=== PATIENT | female | born 1960 | race Caucasian/White ===

== ENCOUNTER 2023-12-16 09:23 | Emergency (ER) | payer OTHER, SELFPAY ==
[2023-12-16 09:25] VITALS: BP 134/89
[2023-12-16 09:36] VITALS: BMI 34.8
[2023-12-16] MEDS: TYLENOL 1000 MG PO (10:14)
[2023-12-16] MEDS: MOTRIN 600 MG PO (10:14)
--- NOTE | 2023-12-16 10:31 | ED.GENMED ---
History of Present Illness
General
Chief Complaint: Musculo-Skeletal Complaint
Time Seen by Provider: 12/16/23 09:34
Travel History
Have you had any contact with someone who has COVID-19?: No
Do you have any symptoms of coronavirus? Fever > 100 degrees, chills, cough, shortness of breath, sore throat, loss of taste or smell, muscle aches, or headache?: No
History of Present Illness
History of Present Illness:
52-year-old female presents emergency department for evaluation of right ankle pain and left knee pain after a fall. She was walking 2 dogs when she was pulled awkwardly to the side, states she inverted the right ankle and then fell to the ground.
She was able to bear minimal weight on the right ankle but no weight on the left lower extremity. Denies any back pain or pelvic pain.
Past History
Past History
ED Past Medical History: None
Social History
Personal:
Living: with family
Review of Systems
Review of Systems
Allergies reviewed?: Yes
All Other Systems: ROS reviewed and negative except as documented in HPI and ROS
Phy Exam
Physical Exam
Physical Exam:
GEN: Well appearing, NAD, WDWN
HEENT: Oral mucosa moist, no scleral icterus
Cardiac: Regular rate
Lung: No respiratory distress, no tachypnea
MSK: Mild swelling to the right ankle with focal tenderness to the distal fibula, no proximal fibular tenderness or foot tenderness on the right. Left knee has a mild superficial abrasion and tenderness to the proximal tibia, no obvious knee
effusion, range of motion is normal.
Skin: Good color, no pallor or jaundice, no rashes
Neuro: AO x3, moves all extremities freely
Psych: Calm, cooperative
Course
Orders/Labs/Results
Orders:
Orders
12/16/23 09:30
CR Ankle - Right Min 3 Views * Urgent
Comment:
Reason For Exam: pain
Knee, Left 4 or More Views [CR Knee - Left 4 Or More View*] Urgent
Comment:
Reason For Exam: pain
12/16/23 10:10
Acetaminophen [Tylenol] 1,000 mg PO NOW STA
Ibuprofen [Motrin] 600 mg PO NOW STA
12/16/23 10:33
CT Lower Ext W/o Iv Cont Lt Urgent
Comment:
Reason For Exam: suspected L tibial plateau fx
12/16/23 12:35
Consult Orthopedic [ORTHOPEDIC CONSULT] Urgent
Consulting Provider: Enrrique Batres
Was physician already notified: Yes
Vital Signs
Initial and Last Documented VS:
Initial Vital Signs
Temp Pulse Resp BP Pulse Ox
98.1 F 76 18 134/89 99
12/16/23 09:25 12/16/23 09:25 12/16/23 09:25 12/16/23 09:25 12/16/23 09:25
Last Documented Vital Signs
Temp Pulse Resp BP Pulse Ox
98.1 F 74 16 132/84 97
12/16/23 09:25 12/16/23 11:35 12/16/23 11:35 12/16/23 11:35 12/16/23 11:35
MDM/Problems Addressed
MDM/Problems Addressed:
Unfortunately patient sustained distal fibular avulsion fracture as well as a nondisplaced left tibial plateau fracture. Orthopedics was consulted for recommendations, patient is in a knee immobilizer for strict nonweightbearing for 2 weeks.
Weightbearing as tolerated authorized for the right lower extremity injury. She does not appears to be steady on crutches this is provided with a wheelchair through case management, 2-week orthopedic follow-up advised
*Critical Care Note
Total Time (30-74mins, 75-104mins- exclusive of procedures): Not Applicable
ED Attending Note
-
Portions of this chart may have been created with voice recognition software.� Occasional wrong word or��sound alike� substitutions may have occurred due to the inherent limitations of voice recognition software.
Discharge Plan
Departure
Patient Disposition: Home (Routine Discharge)
Date of Disposition: 12/16/23
Time of Disposition: 12:31
Patient with high blood pressure during this ER visit?: No
Discharge Problem:
Closed fracture of left tibial plateau, Closed fracture of distal end of right fibula
Instructions: Lower leg fracture
Prescriptions:
No Action
hydrocodone-acetaminophen 1 TABLET tablet
1 tab PO Q4HPRN PRN (Reason: pain) Qty: 14 0RF
Referrals:
Jennifer Cunningham CRNP [Family Provider] -
Enrrique Batres MD [Active] -
Activity Restrictions/Additional Instructions:
NO WEIGHT BEARING ON THE LEFT LEG UNTIL ORTHOPEDIC FOLLOW UP
You may bear weight as tolerated with the right leg
Elevate the legs and ice often
Interventions
Interventions:
*General Assessment Last Done: 12/16/23 09:25
*Neglect/Abuse Screening Last Done: 12/16/23 09:25
ED- Fall Risk Assessment Last Done: 12/16/23 09:36
*Nursing Disposition Last Done: 12/16/23 13:10
ED-Musculoskeletal Assessment Last Done: 12/16/23 09:36
ED- Neurological Assessment Last Done: 12/16/23 09:36
ED-Skin Assessment Last Done: 12/16/23 09:36
Discharge Date and Time
Discharge Date/Time: 12/16/23 13:13
Print Language: YI
[2023-12-16 11:35] VITALS: BP 132/84
--- NOTE | 2023-12-16 12:35 | CON.ORTHO ---
Addendum entered and electronically signed by Enrrique Batres MD 12/16/23 12:55:
Evaluated patient at bedside and agree with the above note. Patient states trip and fall today while walking her dogs. Imaging shows nondisplaced fracture of the left tibial plateau. Reviewed the CT and x-rays which show no displacement of the
joint line. I discussed treatment options with the patient. We discussed nonweightbearing for 8 weeks. I recommended knee immobilizer and follow-up in 2 weeks with x-rays. In 2 weeks if x-rays are nondisplaced and plan will be to start range of
motion of 90. All questions were answered.
Pepe Batres MD
Original Note:
Consultation
-
Date/Time Consultation Requested: 12/16/2023 1200
Date/Time Consultation Performed: 12/16/2023 1230
Requesting Provider: Camacho Keith PA-C
Performing Provider: Robbie Morris PA-C; Dr. Enrrique Batres
Reason for Consultation: R ankle avulsion fx, L tibial plateau fx
Consultation - Orthopedics
History
62-year-old female presenting to [facility] emergency room after sustaining a mechanical fall when she was pulled by 2 dogs she was walking this morning. She reports inversion of her right ankle type injury and direct impact of her left knee. She
reports was able to partially bear weight on the right leg however with the left knee she reports severe pain and inability to stand. She was transported to emergency room at [facility] for further evaluation; she reports superficial abrasion
towards the left knee but otherwise denies any open injuries of her skin. She reports a bruise towards her right hand but denies any other significant injuries. Denies any paresthesias
Allergies / Home Medications
Past medical history: Denied
Past surgical history: , hernia
Medications: Fish oil daily, previous prescription of losartan, multivitamin, Paxlovid September 2023
Allergies: No known drug allergies
Family history: Noncontributory
12 point review of systems: Negative other than described in history of present illness
Social history: No tobacco use, occasional alcohol consumption, community ambulator without assist devices. Primary work as a server administrator/scout. Exercises routinely
Allergy/AdvReac Type Severity Reaction Status Date / Time
No Known Allergies Allergy Verified 05/31/16 07:37
�Medication �Instructions �Recorded
hydrocodone 5 mg-acetaminophen 325 1 tab PO Q4HPRN PRN pain #14 tabs 05/31/16
mg tablet
Vital Signs / Lab Results
Physical examination:
General: Well-nourished well-developed no acute distress conscious alert and oriented person place time and event. Patient is able to hold conversation without issue
Musculoskeletal.:
Right upper extremity: Focused examination of the right upper extremity shows mild mount of ecchymosis towards the thenar eminence of the volar area. She is sensation intact to light touch the radial and median nerve distribution motor function
tact AIN PIN and ulnar nerve brisk capillary refills 2 seconds. Minimal tenderness. Stable demonstrate a well aligned composite fist
Right lower extremity: Focused examination of the right lower extremity shows soft tissue swelling about the lateral malleolus and the soft tissue space near the ATFL/CFL. Skin is intact. She has tenderness in this area and otherwise nontender to
include the medial aspect of her ankle. She is neurovascular tact L5-S1 with mild pain about the lateral ankle with gentle range of motion.
Left lower extremity: Focused examination of the left lower extremity shows superficial abrasion of the left anterior knee. There is swelling and mild effusion of the left knee joint. Compartments of the left lower leg are soft supple and
compressible. Neuro vastly intact L5-S1. Demonstrates free motion of the ankle and toes without pain. Range of motion the knee was not significantly challenged but extensor mechanism is intact. Nontender at the proximal leg to include the thigh
and hip
Temp Pulse Resp BP Pulse Ox
98.1 F 74 16 132/84 97
12/16/23 09:25 12/16/23 11:35 12/16/23 11:35 12/16/23 11:35 12/16/23 11:35
IMAGING:
X-rays taken of the right ankle show suspected acute avulsion fracture of the distal fibula. Ankle mortise is well-preserved and no further evidence of any acute osseous abnormalities. There are some arthrosis of the midfoot noted on lateral view
and evidence of previous avulsion injuries with remote ossifications
X-rays taken of the left knee show a lucency about the tibial plateau consistent with nondisplaced tibial plateau fracture. CT scan of the left knee confirms nondisplaced tibial plateau fracture
Assessment / Plan
62-year-old female mechanical fall from standing today with ankle sprain with avulsion fracture of the right distal fibula and left nondisplaced tibial plateau fracture.
1. Right ankle avulsion fracture.
-Imaging was shown and reviewed with the patient.
-Weightbearing as tolerated with Cam boot versus ankle brace with assist devices as needed. May transition from boot and supplied to brace as tolerated.
2. Left nondisplaced tibial plateau fracture
-Imaging was shown and reviewed with the patient.
-Nonweightbearing to left lower extremity for period of 6 to 8 weeks pending clinical radiographic healing. Knee immobilizer recommended. Sequela of noncompliance was reviewed with increased risk of displacement of her fracture and subsequent
outcomes which patient verified understanding. She will hold on range of motion for the time being of the knee.
-Recommend outpatient follow-up 2 weeks from date of injury for repeat x-rays to monitor for interval displacement, sooner for questions or concerns
-Consider DVT prophylaxis of aspirin 81 mg twice daily with decreased ambulatory status until advanced; may perform gentle calf pumps with ankle ROM at rest
--- NOTE | 2023-12-16 13:05 | CM ---
Addendum entered by Katrina Ortiz RN 12/16/23 13:29:
[facility] confirmed they are able to deliver to the patient's home for a wheelchair.
Original Note:
CM was consulted to arrange for Wheelchair delivery. CM faxed script, medical necessity documentation and face sheet to [facility]. Patient was discharged home and will wait for wheelchair delivery for patient.
== END 2023-12-16 13:13 | disposition home or self-care (01) ==
LOC: EMR 09:23
PROVIDERS: CONSULT PHYSICIAN Orthopaedic Surgery; EMERGENCY PHYSICIAN Emergency Medicine; FAMILY PHYSICIAN Nurse Practitioner Adult Health
DX: S82.145A Nondisplaced bicondylar fracture of left tibia, initial encounter for closed fracture (principal); S82.831A Other fracture of upper and lower end of right fibula, initial encounter for closed fracture; S80.212A Abrasion, left knee, initial encounter; S60.221A Contusion of right hand, initial encounter; M25.462 Effusion, left knee; X50.1XXA Overexertion from prolonged static or awkward postures, initial encounter; W18.39XA Other fall on same level, initial encounter; Y93.K1 Activity, walking an animal
CPT/HCPCS: 99283; 29505; 73564; 73610; 73700